=== PATIENT | male | born 1985 | race Caucasian/White ===

== ENCOUNTER 2023-02-07 11:05 | Emergency (ER) | payer SELFPAY ==
[2023-02-07 11:17] VITALS: BP 106/71; PULSE 70; RESP 18; TEMP 36.5; O2SAT 99; BMI 23.6
--- NOTE | 2023-02-07 11:25 | PC.NURSE ---
Pt got stung by a bee Tuesday night. Concerned since swelling has not gone down and skin is hot and red at this time. Left ankle has swelling and is hot to the touch.
[2023-02-07] MEDS: PREDNISONE 20 MG TABLET 40 MG PO (11:46)
--- NOTE | 2023-02-07 12:02 | ED.EXTPRO1 ---
HPI - Extremity Problem General Chief complaint: Extremity Problem, Nontraumatic Stated complaint: STUNG ON L ANKLE Time Seen by Provider: 02/07/23 11:20 Source: patient Mode of arrival: walk-in Limitations: no limitations History of Present Illness HPI Narrative: Coming to the ER with left ankle swelling and redness that started Tuesday after he had a insect bite ( yellow jacket ) , the patient had some itching there he noticed some redness and increase in swelling over the last few days He denies any fever or any other complaints Related Data Previous Rx's Medication Instructions Recorded amoxicillin 875 mg-potassium 1 tab PO BID #20 tabs 02/07/23 clavulanate 125 mg tablet loratadine 10 mg tablet (Claritin) 10 mg PO DAILY PRN itching #10 tabs 02/07/23 Allergies Allergy/AdvReac Type Severity Reaction Status Date / Time No Known Drug Allergies Allergy Verified 02/07/23 11:21 Review of Systems ROS Status of ROS 10 or more systems reviewed and unremarkable except as noted in history and below Exam Narrative Exam Narrative: Nurses notes and vital signs reviewed and patient is not hypoxic. General: Well-appearing and in no apparent distress. Skin: Warm, dry, no pallor noted. No rash. Head: Normocephalic, atraumatic. Neck: Supple, non-tender. Eye: Pupils are equal, round and EOMI. No scleral icterus. Ears, Nose, Mouth, and Throat: TM are clear, no nasal mucosal hypertrophy. Oral mucosa is moist, no posterior oropharynx erythema, uvula is mid-line Cardiovascular: Regular Rate and Rhythm without murmur, gallop or rub. Respiratory: No accessory muscle use or respiratory distress. Lungs are clear to auscultation, no wheezing, rales or rhonchi Chest Wall: no tenderness Back: No midline thoracic or lumbar vertebral tenderness. No CVA tenderness Musculoskeletal: normal ROM, no calf or popliteal tenderness there is redness and swelling on the left lateral malleolus the patient had a good ant tibial pulse but he did not allow me to examine his toes GI: Abdomen is soft, non-distended. Normal bowel sounds. No masses appreciated. No tenderness to palpation. No rebound, guarding, or rigidity noted. Neurological: A&O x4. No cranial nerve dysfunction observed. No truncal ataxia. Moves all extremities. Sensation intact. Psychiatric: Cooperative and interactive. Normal mood and affect. Constitutional Vital Signs, click to edit/add: Last Vital Signs Temp 97.7 F 02/07/23 11:17 Pulse 70 02/07/23 11:17 Resp 18 02/07/23 11:17 BP 106/71 02/07/23 11:17 Pulse Ox 99 02/07/23 11:17 O2 Del Method Room Air 02/07/23 11:17 Course Vital Signs Vital signs: Vital Signs Temperature 97.7 F 02/07/23 11:17 Pulse Rate 70 02/07/23 11:17 Respiratory Rate 18 02/07/23 11:17 Blood Pressure 106/71 02/07/23 11:17 Pulse Oximetry 99 02/07/23 11:17 Oxygen Delivery Method Room Air 02/07/23 11:17 Temperature 97.7 F 02/07/23 11:17 Pulse Rate 70 02/07/23 11:17 Respiratory Rate 18 02/07/23 11:17 Blood Pressure 106/71 02/07/23 11:17 Pulse Oximetry 99 02/07/23 11:17 Oxygen Delivery Method Room Air 02/07/23 11:17 MDM - Extremity (Nontraumatic) MDM Narrative Medical decision making narrative: The patient presentation is mostly secondary to inflammatory reaction due to the yellowjacket bite and right now the patient was treated in the ER with prednisone and started on Augmentin discharged home with Claritin and Augmentin although he was offered initially an IV 1 dose of antibiotic but he did not want to stay for that The patient was instructed to come back in case of any increasing redness or any fever or any increase in swelling The patient is to follow up with primary care physician in next 2-3 days or to return to the emergency department should any of the signs or symptoms worsen or new symptoms develop. The patient agrees with the following Diagnosis and Treatment plan and the patient will be discharged home. Discharge Plan Discharge Chief Complaint: Extremity Problem, Nontraumatic Clinical Impression: Cellulitis, Insect bite Patient Disposition: Home, Self-Care Time of Disposition Decision: 11:36 Condition: Good Mode of Transportation: Private Vehicle Prescriptions / Home Meds: New amoxicillin-pot clavulanate 875-125 mg tablet 1 tab PO BID Qty: 20 0RF loratadine [Claritin] 10 mg tablet 10 mg PO DAILY PRN (Reason: itching) Qty: 10 0RF Instructions: Cellulitis (ED) Stand Alone Forms: Portal Instructions Referrals: Shaikh Hensley MD [Physician] - 1 week Discharge Date/Time: 02/07/23 12:07
== END 2023-02-07 12:07 | disposition home or self-care (01) ==
LOC: ER 12:02
PROVIDERS: Emergency Provider Emergency Medicine
DX: T63.441A Toxic effect of venom of bees, accidental (unintentional), initial encounter (principal); L03.116 Cellulitis of left lower limb
CPT/HCPCS: 99283

== ENCOUNTER 2024-04-23 11:53 | Emergency (ER) | payer OTHER, SELFPAY ==
[2024-04-23 11:57] VITALS: BP 115/76; PULSE 66; TEMP 36.7; O2SAT 97; BMI 23.7
--- NOTE | 2024-04-23 12:09 | ED_ITS ---
HPI HPI - General Adult General Chief complaint: Extremity Injury, Upper Stated complaint: UPPER EXTREMITY PAIN, SHOULDER LEFT Time Seen by Provider: 04/23/24 12:05 Source: patient and family Mode of arrival: walk-in Limitations: no limitations History of Present Illness HPI narrative: Patient presenting to the emergency department for evaluation of left shoulder pain. Patient states that for the last week he has noted the left shoulder blade has been hurting him in the back. States that whenever he takes the elbow moves it backwards he notices it is causing pain. Has not had any slips, trips, falls, trauma. Worse when he is using his shoulder or moving around range of motion he starts to notice it in the back left shoulder blade. Patient has had no chest pain, shortness of breath, no trauma, slips trips or falls. States the pain is better with a little bit of Advil, worse when he is moving. No other that this time Related Data Previous Rx's ?Medication ?Instructions ?Recorded amoxicillin 875 mg-potassium 1 tab PO BID #20 tabs 02/07/23 clavulanate 125 mg tablet loratadine 10 mg tablet (Claritin) 10 mg PO DAILY PRN itching #10 tabs 02/07/23 Allergies Allergy/AdvReac Type Severity Reaction Status Date / Time No Known Drug Allergies Allergy Verified 04/23/24 12:01 Opioid HPI Opioid Management Most Recent Opioid Data: Last Pain Scale 6 04/23/24 12:11 Last ED Pain Assessment 04/23/24 12:11 Review of Systems ROS Narrative Negative unless otherwise stated in the HPI PFSH PFSH Social History Little interest or pleasure in doing things: not at all Feeling down, depressed, or hopeless: not at all Exam Narrative Exam Narrative: General: NAD, AAOx3, no distress Neck: Supple, no LAD, negative Kernig/Brudzinski, non meningeal, no bruit Respiratory: respiratory effort normal, speaks in full sentences, no tripod position, no accessory muscle use. Lungs clear to auscultation without rhonchi, wheezes, rales Cardiac: Regular rate and rhythm, no edema, regular s1/s2, no m/g/r Ext: Shoulder posteriorly tender to palpation at the medial left scapula, hypertonicity and tissue texture abnormality at the soles to the medial scapula, pain with shoulder extension Constitutional Vital Signs, click to edit/add: Last Vital Signs Temp 98.1 F 04/23/24 11:57 Pulse 66 04/23/24 11:57 Resp 18 04/23/24 11:57 BP 115/76 04/23/24 11:57 Pulse Ox 97 04/23/24 11:57 O2 Del Method Room Air 04/23/24 11:57 Course Vital Signs Vital signs: Vital Signs Temperature 98.1 F 04/23/24 11:57 Pulse Rate 66 04/23/24 11:57 Respiratory Rate 18 04/23/24 11:57 Blood Pressure 115/76 04/23/24 11:57 Pulse Oximetry 97 04/23/24 11:57 Oxygen Delivery Method Room Air 04/23/24 11:57 Temperature 98.1 F 04/23/24 11:57 Pulse Rate 66 04/23/24 11:57 Respiratory Rate 18 04/23/24 11:57 Blood Pressure 115/76 04/23/24 11:57 Pulse Oximetry 97 04/23/24 11:57 Oxygen Delivery Method Room Air 04/23/24 11:57 Medical Decision Making MDM Narrative Medical decision making narrative: [facility] Patient with history as above presented with shoulder pain. History obtained from patient. Patient was nontoxic, stable. Ambulatory. Exam as above. Independently reviewed imaging. Reviewed external records. Differential diagnosis considered. Overall presentation is consistent with shoulder pain Advanced guidance has been given. Vss, pex is benign at this time. Pt to fu with pcp 1-2 days for reeval, rter should sx worsen, persist or become worrysome in any way. All incidental laboratory studies, EKG, radiologic findings have been noted and discussed with patient. Patient was reevaluated with a benign exam at this time. Pt expressed understanding and agreement with plan of care at this time. Will fu as planned. Pt stable for discharge. Medical Records Medical records reviewed: Yes I reviewed the patient's medical records Discharge Plan Discharge Chief Complaint: Extremity Injury, Upper Clinical Impression: Acute shoulder pain Patient Disposition: Home, Self-Care Time of Disposition Decision: 12:54 Condition: Good Prescriptions / Home Meds: No Action amoxicillin-pot clavulanate 875-125 mg tablet 1 tab PO BID Qty: 20 0RF loratadine [Claritin] 10 mg tablet 10 mg PO DAILY PRN (Reason: itching) Qty: 10 0RF Print Language: [place]at[place] Instructions: Shoulder Pain (ED) Additional Instructions: Follow-up with your PCP in the next 1 to 2 days. Return to the emergency department should symptoms worsen or become worrisome in any way. Referrals: Physician,Non-Staff, MD [Primary Care Provider] - 1 week
[2024-04-23] MEDS: KETOROLAC TROMETHAMINE 30 MG/ML VIAL 15 MG IM (12:20)
--- NOTE | 2024-04-23 12:28 | XR_ITS ---
The [address] [address] Patient Name: ALFREDITO KIDD MRN: [id number] date: 1985 Sex: M Assigned Patient Location: ED.MAIN Current Patient Location: ED.MAIN Accession/Order Number: [id number] Exam Date: 04/23/2024 12:21 Report Date: 04/23/2024 12:48 At the request of: TONE WINKLER Procedure: XR shoulder LT min 2V PROCEDURE: XR shoulder LT min 2V COMPARISON: None. HISTORY: pain FINDINGS: BONES:No fracture, acute abnormality, or significant arthropathy. SOFT TISSUES:Negative. No visible soft tissue swelling. EFFUSION:None visible. OTHER: Negative. XR/XR shoulder LT min 2V IMPRESSION: No acute radiographic abnormality Electronically authenticated by: CARMELA FIELDS Date: 04/23/2024 12:48
== END 2024-04-23 12:59 | disposition home or self-care (01) ==
PROVIDERS: Emergency Provider Emergency Medicine
DX: M25.512 Pain in left shoulder (principal)
CPT/HCPCS: 73030; 96372; 99284; J1885